=== PATIENT | female | born 1985 | race Caucasian/White ===

== ENCOUNTER 2024-09-14 18:15 | Inpatient (IN) | payer MEDICAID, OTHER ==
[~2024-09-14] VITALS: Ht 165.1 cm; Wt 95.0 kg
[2024-09-14] MEDS ORDERED: PALI234D IM (19:06)
[2024-09-14] MEDS ORDERED: HYDR-4808 PO (19:22)
[2024-09-14] MEDS ORDERED: OLAN10TA74 PO (19:22)
[2024-09-14] MEDS: LORazepam 2 MG/ML VIAL IM ONE (19:49)
[2024-09-14 20:07] LABS: PLATELET COUNT (AUTO) 369 K/uL (150-450); RED BLOOD CELL COUNT(AUTO) 4.01 MIL/uL (4.00-5.20); RED CELL DISTRIBUTION WIDTH 13.7 % (11.5-14.5); WHITE BLOOD COUNT (AUTO) 11.2 K/uL (4.5-11.0)
[2024-09-14 20:16] LABS: CALCIUM, TOTAL 8.5 mg/dL (8.8-10.5); CREATININE 0.80 mg/dL (0.60-1.30); GLOMERULAR FILTR. RATE CALC > 60 mL/min (>60); GLUCOSE,RANDOM 112 mg/dL (70-110); SODIUM SERUM 138 mmol/L (136-145); UREA NITROGEN, BLOOD 6 mg/dL (7-18)
[2024-09-14] MEDS: NICOTINE 14 MG/24 HOUR PATCH TD ONE (20:36)
[2024-09-14 20:52] LABS: COVID AG,FIA SOURCE NASAL SWAB
[2024-09-14 21:08] LABS: SARS-COV2 (COVID) ANTIGEN,FIA Negative (Negative)
[2024-09-15 05:53] LABS: PLATELET COUNT (AUTO) 339 K/uL (150-450); RED BLOOD CELL COUNT(AUTO) 4.01 MIL/uL (4.00-5.20); RED CELL DISTRIBUTION WIDTH 14.1 % (11.5-14.5); WHITE BLOOD COUNT (AUTO) 8.4 K/uL (4.5-11.0)
[2024-09-15 06:13] LABS: ASPARTATE AMINOTRANSFERASE 25 U/L (15-37); CALCIUM, TOTAL 8.5 mg/dL (8.8-10.5); CHOL/HDL RATIO 2.3 (3.9-5.7); CREATININE 0.56 mg/dL (0.60-1.30); GLOMERULAR FILTR. RATE CALC > 60 mL/min (>60); GLUCOSE,RANDOM 92 mg/dL (70-110); LDL CHOL (CALC.) 93 mg/dL (0-130); SODIUM SERUM 141 mmol/L (136-145); TOTAL PROTEIN, SERUM 6.2 g/dL (6.4-8.2); UREA NITROGEN, BLOOD 7 mg/dL (7-18)
[2024-09-15] MEDS ORDERED: LORazepam 2 MG/ML VIAL ONE (09:54)
[2024-09-15] MEDS: LORazepam 2 MG/ML VIAL IM ONE (10:06)
[2024-09-15] MEDS: NICOTINE 14 MG/24 HOUR PATCH TD ONE (10:14)
[2024-09-15 13:27] VITALS: O2SAT 98
[2024-09-15 14:20] VITALS: BP 113/78; PULSE 88; RESP 16; TEMP 97.1; O2SAT 99
[2024-09-15] MEDS ORDERED: ACETAMINOPHEN 325 MG TABLET PO PRN (16:30)
[2024-09-15] MEDS ORDERED: MAGNESIUM HYDROXIDE SUSPENSION 30 ML UDCUP PO PRN (16:30)
[2024-09-15] MEDS ORDERED: GuaiFENesin/D-METHORPHAN [SUGAR-FREE] 200-20MG/10 ML SYRUP UDCUP PO PRN (16:30)
[2024-09-15] MEDS ORDERED: LOPERAMIDE HCL 2 MG CAPSULE PO PRN (16:30)
[2024-09-15] MEDS ORDERED: NICOTINE 14 MG/24 HOUR PATCH TD PRN (16:30)
[2024-09-15] MEDS ORDERED: ONDANSETRON 4 MG TABLET PO PRN (16:30)
[2024-09-15] MEDS ORDERED: MAG HYDROX/ALUMINUM HYD/SIMETH ES 30 ML SUSPENSION UDCUP PO PRN (16:30)
[2024-09-15] MEDS ORDERED: PETROLATUM,WHITE 28 GM JELLY TP PRN (16:30)
[2024-09-15] MEDS ORDERED: ALBUTEROL SULFATE HFA 90 MCG/PUFF 8 GM INHALER IH PRN (16:30)
[2024-09-15] MEDS ORDERED: IBUPROFEN 400 MG TABLET PO PRN (16:30)
[2024-09-15] MEDS ORDERED: DOCUSATE SODIUM 100 MG CAPSULE PO PRN (16:30)
[2024-09-15] MEDS: BACITRACIN 28 GM OINTMENT TP SCH (17:49)
[2024-09-15 20:39] VITALS: RESP 16
[2024-09-16] MEDS: ZOLPIDEM TARTRATE 10 MG TABLET PO PRN (01:52)
[2024-09-16] MEDS: LORazepam 2 MG/ML VIAL IM ONE (04:09)
[2024-09-16] MEDS ORDERED: DOCUSATE SODIUM 100 MG CAPSULE PO PRN (06:15)
[2024-09-16] MEDS ORDERED: ALBUTEROL SULFATE HFA 90 MCG/PUFF 8 GM INHALER IH PRN (06:15)
[2024-09-16] MEDS ORDERED: MAG HYDROX/ALUMINUM HYD/SIMETH ES 30 ML SUSPENSION UDCUP PO PRN (06:15)
[2024-09-16] MEDS ORDERED: NICOTINE 14 MG/24 HOUR PATCH TD PRN (06:15)
[2024-09-16] MEDS ORDERED: PETROLATUM,WHITE 28 GM JELLY TP PRN (06:15)
[2024-09-16] MEDS ORDERED: GuaiFENesin/D-METHORPHAN [SUGAR-FREE] 200-20MG/10 ML SYRUP UDCUP PO PRN (06:15)
[2024-09-16] MEDS ORDERED: IBUPROFEN 400 MG TABLET PO PRN (06:15)
[2024-09-16] MEDS ORDERED: LOPERAMIDE HCL 2 MG CAPSULE PO PRN (06:15)
[2024-09-16] MEDS ORDERED: ONDANSETRON 4 MG TABLET PO PRN (06:15)
[2024-09-16] MEDS ORDERED: MAGNESIUM HYDROXIDE SUSPENSION 30 ML UDCUP PO PRN (06:15)
[2024-09-16] MEDS: NICOTINE 14 MG/24 HOUR PATCH TD SCH (08:29)
[2024-09-16 08:32] VITALS: BP 107/66; PULSE 91; RESP 17; TEMP 97; O2SAT 100
[2024-09-16 09:15] LABS: CHOL/HDL RATIO 2.5 (3.9-5.7); LDL CHOL (CALC.) 98.0 mg/dL (0-130)
[2024-09-16] MEDS: DIVALPROEX SODIUM 500 MG DR TABLET PO SCH (10:38)
[2024-09-16] MEDS: PALIPERIDONE PALMITATE 234 MG/1.5 ML SYRINGE IM SCH (17:47)
[2024-09-16 20:29] VITALS: BP 127/64; PULSE 82; RESP 17; TEMP 97.8; O2SAT 98
[2024-09-17] MEDS: ACETAMINOPHEN 325 MG TABLET PO PRN (05:31)
[2024-09-17 05:32] VITALS: RESP 17
[2024-09-17] MEDS: LEVOTHYROXINE SODIUM 25 MCG TABLET PO SCH (06:28)
[2024-09-17 08:29] VITALS: BP 115/87; PULSE 96; RESP 17; TEMP 97.5; O2SAT 92
[2024-09-17 09:28] LABS: CHOL/HDL RATIO 2.5 (3.9-5.7); LDL CHOL (CALC.) 95.0 mg/dL (0-130)
[2024-09-17] MEDS ORDERED: DIVA-112 PO (12:03)
[2024-09-17] MEDS ORDERED: LEVO25TA9 PO (12:06)
== END 2024-09-17 15:45 | disposition home or self-care (01) | DRG 750 ==
LOC: EMS 18:15 → B3A 09-15 13:39
PROVIDERS: ADMIT Psychiatry & Neurology Psychiatry; ATTEND Psychiatry & Neurology Psychiatry
PROC: GZHZZZZ Group Psychotherapy (ICD-10-PCS; principal; 2024-09-16)
PROC: GZ52ZZZ Individual Psychotherapy, Cognitive (ICD-10-PCS; 2024-09-16)
DX: F25.0 Schizoaffective disorder, bipolar type (principal); Z20.822 Contact with and (suspected) exposure to COVID-19; Z79.899 Other long term (current) drug therapy
CPT/HCPCS: 80048; 80053; 80061; 83036; 84436; 84443; 84703; 85025; 99291; G0480; J1200; J1630; J2060